=== PATIENT | female | born 1970 | race African-American/Black ===

== ENCOUNTER 2019-08-22 19:18 | Emergency (ER) | payer OTHER ==
[~2019-08-22] VITALS: Ht 167.6 cm; Wt 163.3 kg
[2019-08-22] MEDS ORDERED: METHOCARBAMOL500 M1 PO (21:14)
[2019-08-22] MEDS ORDERED: ANAPROX DS550 MG PO (21:14)
== END 2019-08-22 21:23 | disposition home or self-care (01) ==
LOC: ED 19:18
DX: S16.1XXA Strain of muscle, fascia and tendon at neck level, initial encounter (principal); V49.9XXA Car occupant (driver) (passenger) injured in unspecified traffic accident, initial encounter; Y93.89 Activity, other specified; Y92.488 Other paved roadways as the place of occurrence of the external cause; Y99.8 Other external cause status